=== PATIENT | female | born 1980 | race Caucasian/White ===

== ENCOUNTER 2016-07-20 22:57 | Emergency (ER) | payer OTHER ==
[2016-07-20 23:14] VITALS: TEMP 98.5; BMI 31.2
--- NOTE | 2016-07-20 23:24 | PDOC ---
History of Present Illness <Elvira Reynolds - Last Filed: 07/20/16 23:24> - General History Source: Patient Exam Limitations: No Limitations - History of Present Illness Initial Comments: 07/20/16 23:48 The patient is a 36 year old female, with a significant past medical history of HTN (diet controlled), who presents to the emergency department with LLQ pain for about 2 weeks. The patient ranks her pain a 7/10 in pain intensity. She reports her pain has been significantly worse today. The patient notes also having abdominal pain whenever she walks or ambulates. She denies recent fevers , chills, headache or dizziness. She denies recent nausea, vomit, diarrhea or constipation. She denies recent dysuria, frequency, urgency or hematuria. She denies recent chest pain or shortness of breath. She denies any back pain. Allergies: NKDA Past surgical history: x 4 Social history: Nonsmoker. Denies EtOH use and recreational drug use. Primary Care Physician: <Papi Ellis - Last Filed: 07/20/16 23:46> <Erin Gaming - Last Filed: 07/21/16 05:06> - General Chief Complaint: Pain Stated Complaint: PAIN TO LEFT SIDE Time Seen by Provider: 07/20/16 23:23 Past History - Past Medical History Asthma: No Cancer: No Cardiac Disorders: No Diabetes: No HTN: Yes Seizures: No Thyroid Disease: No - Psycho/Social/Smoking Cessation Hx Anxiety: No Suicidal Ideation: No Smoking History: Never smoked Have you smoked in the past 12 months: No Information on smoking cessation initiated: No Hx Alcohol Use: No Drug/Substance Use Hx: No Hx Substance Use Treatment: No <Elvira Reynolds - Last Filed: 07/20/16 23:24> <Papi Ellis - Last Filed: 07/20/16 23:46> <Erin Gaming - Last Filed: 07/21/16 05:06> - Past Medical History Allergies/Adverse Reactions: Allergies Allergy/AdvReac Type Severity Reaction Status Date / Time No Known Allergies Allergy Verified 07/20/16 23:00 Home Medications: Ambulatory Orders Levofloxacin [Levaquin -] 500 mg PO DAILY #7 tablet 05/15/17 Sulfamethoxazole/Trimethoprim [Bactrim Ds -] 1 tab PO BID #14 tablet 07/21/16 Review of Systems - Review of Systems Able to Perform ROS?: Yes Comments:: 07/20/16 23:46 CONSTITUTIONAL: Absent: fever, chills, diaphoresis, generalized weakness, malaise, loss of appetite HEENT: Absent: rhinorrhea, nasal congestion, throat pain, throat swelling, difficulty swallowing, mouth swelling, ear pain, eye pain, visual Changes CARDIOVASCULAR: Absent: chest pain, syncope, palpitations, irregular heart rate, lightheadedness , peripheral edema RESPIRATORY: Absent: cough, shortness of breath, dyspnea with exertion, orthopnea, wheezing, stridor, hemoptysis GASTROINTESTINAL: +LLQ pain. Absent: nausea, vomiting, diarrhea, constipation, melena, hematochezia GENITOURINARY: Absent: dysuria, frequency, urgency, hesitancy, hematuria, flank pain, genital pain MUSCULOSKELETAL: Absent: myalgia, arthralgia, joint swelling SKIN: Absent: rash, itching, pallor HEMATOLOGIC/IMMUNOLOGIC: Absent: easy bleeding, easy bruising, lymphadenopathy, frequent infections ENDOCRINE: Absent: unexplained weight gain, unexplained weight loss, heat intolerance, cold intolerance NEUROLOGIC: Absent: headache, focal weakness or paresthesias, dizziness, unsteady gait, seizure, mental status changes, bladder or bowel incontinence PSYCHIATRIC: Absent: anxiety, depression, suicidal or homicidal ideation, hallucinations. <Papi Ellis - Last Filed: 07/20/16 23:46> *Physical Exam - Vital Signs Last Vital Signs Temp Pulse Resp BP Pulse Ox 98.5 F 84 18 156/99 100 07/20/16 22:59 07/20/16 22:59 07/20/16 22:59 07/20/16 22:59 07/20/16 22:59 <Elvira Reynolds - Last Filed: 07/20/16 23:24> - Vital Signs Last Vital Signs Temp Pulse Resp BP Pulse Ox 98.5 F 84 18 156/99 100 07/20/16 22:59 07/20/16 22:59 07/20/16 22:59 07/20/16 22:59 07/20/16 22:59 - Physical Exam Comments: 07/20/16 23:47 GENERAL: Well developed, well nourished. Awake and alert. No acute distress. HEENT: Normocephalic, atraumatic. PERRLA, EOMI. No conjunctival pallor. Sclera are non- icteric. Moist mucous membranes. Oropharynx is clear. NECK: Supple. Full ROM. No JVD. Carotid pulses 2+ and symmetric, without bruits. No thyromegaly. No lymphadenopathy. CARDIOVASCULAR: Regular rate and rhythm. No murmurs, rubs, or gallops. Distal pulses are 2+ and symmetric. PULMONARY: No evidence of respiratory distress. Lungs clear to auscultation bilaterally. No wheezing, rales or rhonchi. ABDOMINAL: LLQ tenderness. Soft.Non-distended. No rebound or guarding. No organomegaly. Normoactive bowel sounds. MUSCULOSKELETAL Normal range of motion at all joints. No bony deformities or tenderness. No CVA tenderness. EXTREMITIES: No cyanosis. No clubbing. No edema. No calf tenderness. SKIN: Warm and dry. Normal capillary refill. No rashes. No jaundice. NEUROLOGICAL: Alert, awake, appropriate. Cranial nerves 2-12 intact. No deficits to light touch and temperature in face, upper extremities and lower extremities. No motor deficits in the in face, upper extremities and lower extremities. Normoreflexic in the upper and lower extremities. Normal speech. Toes are down- going bilaterally. Gait is normal without ataxia. PSYCHIATRIC: Cooperative. Good eye contact. Appropriate mood and affect. <Papi Ellis - Last Filed: 07/20/16 23:46> - Vital Signs Last Vital Signs Temp Pulse Resp BP Pulse Ox 98.5 F 84 18 156/99 100 07/20/16 22:59 07/20/16 22:59 07/20/16 22:59 07/20/16 22:59 07/20/16 22:59 <Erin Gaming - Last Filed: 07/21/16 05:06> ED Treatment Course - LABORATORY CBC & Chemistry Diagram: 07/21/16 00:05 07/21/16 00:05 - ADDITIONAL ORDERS Additional order review: Laboratory Results 07/21/16 07/21/16 00:05 00:05 Sodium 140 Potassium 4.1 Chloride 101 Carbon Dioxide 26 Anion Gap 13 BUN 9 D Creatinine 0.6 Creat Clearance w eGFR > 60 Random Glucose 94 Calcium 9.0 Total Bilirubin 0.3 AST 15 D ALT 21 D Alkaline Phosphatase 123 H D Total Protein 7.9 Albumin 3.9 D Lipase 141 Serum , Qual Negative Urine Color Ltyellow Urine Appearance Cloudy Urine pH 7.0 Urine Protein Negative Urine Glucose (UA) Negative Urine Ketones Negative Urine Blood Negative Urine Nitrite Negative Urine Bilirubin Negative Urine Urobilinogen Negative Ur Leukocyte Esterase 3+ H Urine RBC 5 Urine WBC 51 Ur Epithelial Cells Many Urine Bacteria Few Urine Mucus Rare 07/21/16 00:05 RBC 4.09 MCV 93.1 MCHC 32.7 RDW 12.4 D MPV 7.4 L Neutrophils % 61.0 Lymphocytes % 29.2 Monocytes % 5.9 Eosinophils % 3.5 Basophils % 0.4 - Medications Given in the ED: ED Medications Discontinued Medications Generic Name Dose Route Start Last Admin Trade Name Dee PRN Reason Stop Dose Admin Levofloxacin 100 mls @ 100 mls/hr 07/21/16 02:21 07/21/16 03:18 Levaquin 500 Mg Premixed Ivpb - IVPB 07/21/16 03:20 100 mls/hr ONCE ONE Administration <Erin Gaming - Last Filed: 07/21/16 05:06> Medical Decision Making - Medical Decision Making 07/21/16 03:21 Patient Name: Holly Christensen THIS IS A PRELIMINARYREPORT FROM [facility] EXAM: CT abdomen and pelvis with contrast IMAGES: 472 INDICATION: Left lower quadrant pain DATE OF SERVICE: 2016-07-21 02:44:45.0 COMPARISON: none FINDINGS: Lung bases are clear. The visualized cardiac chambers are normal size and configuration. Normal liver, gallbladder, pancreas, spleen, adrenal glands and kidneys. The stomach and abdominal small and large bowel are normal. There is no aortic aneurysm. There is no significant retroperitoneal lymphadenopathy. There is inflammation adjacent to sigmoid colon containing a center of that, likely representing epiploic appendagitis. No definite inflammation of the adjacent sigmoid colon. The appendix is normal. The uterus and adnexal structures are notable only for a 1.6 cm involuting left ovarian cyst. Urinary bladder is unremarkable. There is minimal pelvic free fluid. No discrete pelvic lymphadenopathy is identified. IMPRESSION: Perisigmoid epiploic appendagitis. Small involuting left ovarian cyst with minimal pelvic free fluid THIS DOCUMENT HAS BEEN ELECTRONICALLY SIGNED 07/21/16 05:06 Pt will be sent home wtih bactrim DS for her UTI, as her insurance doesn;t cover levaquin <Erin Gaming - Last Filed: 07/21/16 05:06> *DC/Admit/Observation/Transfer <Elvira Reynolds - Last Filed: 07/20/16 23:24> - Attestations Scribe Attestion: 07/20/16 23:46 Documentation prepared by Papi Ellis, acting as medical doctor md for Elvira Reynolds MD. <Papi Ellis - Last Filed: 07/20/16 23:46> - Discharge Dispostion Admit: No <Erin Gaming - Last Filed: 07/21/16 05:06> Diagnosis at time of Disposition: UTI (urinary tract infection) - Discharge Dispostion Disposition: HOME Condition at time of disposition: Stable - Prescriptions Prescriptions: Sulfamethoxazole/Trimethoprim [Bactrim Ds -] 1 tab PO BID #14 tablet Levofloxacin [Levaquin -] 500 mg PO DAILY #7 tablet - Referrals Referrals: Helio Gilbert [Primary Care Provider] - - Patient Instructions Printed Discharge Instructions: DI for Urinary Tract Infection (UTI)
[2016-07-21 00:44] LABS: BASOPHIL 0.4 % (0-2.0); EOSINOPHIL 3.5 % (0-4.5); MCH 30.5 pg (25.7-33.7); MCHC 32.7 g/dl (32.0-36.0); MEAN CELL VOLUME 93.1 fl (80-96); MEAN PLT VOLUME 7.4 fl (7.5-11.1); PLATELET COUNT 408 K/MM3 (134-434); RDW 12.4 % (11.6-15.6); WHITE BLOOD COUNT 11.1 K/mm3 (4.0-10.0)
[2016-07-21 01:10] LABS: ALBUMIN 3.9 g/dl (3.4-5.0); ANION GAP 13 (8-16); CO2 26 mmol/L (21-32); CREATININE 0.6 mg/dL (0.55-1.02); GLUCOSE,RANDOM 94 mg/dL (74-106); SGOT/AST 15 U/L (15-37)
[2016-07-21 01:19] LABS: ALK PHOS 123 U/L (45-117); BILIRUBIN,TOTAL 0.3 mg/dL (0.2-1.0); SGPT/ALT 21 U/L (12-78); TOT PROT 7.9 g/dl (6.4-8.2)
[2016-07-21 01:22] LABS: URINE APPEARANCE CLOUDY; URINE BILIRUBIN NEGATIVE (NEGATIVE); URINE BLOOD NEGATIVE (NEGATIVE); URINE COLOR LTYELLOW; URINE GLUCOSE (UA) NEGATIVE (NEGATIVE); URINE KETONE NEGATIVE (NEGATIVE); URINE NITRITE NEGATIVE (NEGATIVE); URINE PROTEIN NEGATIVE (NEGATIVE); URINE UROBILINOGEN NEGATIVE E.U./dl (0.2-1.0)
[2016-07-21 01:23] LABS: URINE LEUK ESTERASE 3+ (NEGATIVE)
[2016-07-21 01:40] LABS: URINE BACTERIA FEW /hpf (NONE SEEN); URINE MUCUS RARE; URINE RBC 5 /hpf (0-3); URINE WBC 51 /hpf (3-5)
[2016-07-21] MEDS ORDERED: LEVOFLOXACIN 500 MG IVPB 100 ML IVPB ONE ×2 (02:21→02:40)
[2016-07-21 03:43] VITALS: BP 128/74; PULSE 83
== END 2016-07-21 03:42 | disposition home or self-care (01) ==
LOC: JER 22:57
DX: N39.0 Urinary tract infection, site not specified (principal); I10 Essential (primary) hypertension
CPT/HCPCS: 36415; 74177-TC; 80053; 81003; 81015; 83690; 84703; 85025; 96365; 99283-25